=== PATIENT | female | born 1965 | race Caucasian/White ===

== ENCOUNTER 2018-09-26 12:35 | Day surgery (SDC) | payer OTHER ==
[2018-09-26] MEDS ORDERED: MIDAZOLAM 1 MG/ML 2 ML INJ ×2 (14:02)
[2018-09-26] MEDS ORDERED: FENTAnyl 50 MCG/ML VIAL (14:03)
== END 2018-09-26 15:03 | disposition home or self-care (01) ==
LOC: GIL 12:35
DX: Z12.11 Encounter for screening for malignant neoplasm of colon (principal)
CPT/HCPCS: 45378